=== PATIENT | male | born 1980 | race Caucasian/White ===

== ENCOUNTER 2022-01-07 09:12 | Emergency (ER) | payer BC, MEDICAID ==
[2022-01-07] MEDS ORDERED: Alum Hydro/Mag Hydro/Simeth XS 15 ML, Lidocaine 2% 5 ML PO ONE ×2 (09:34)
[2022-01-07 10:08] LABS: CARBON DIOXIDE,CO2 30.6 mmol/L (21.0-32.0); POTASSIUM,K 3.4 mmol/L (3.5-5.1)
[2022-01-07 10:22] LABS: CORONAVIRUS COVID-19 NAA NEGATIVE (NEGATIVE); INFLUENZA A NAA NEGATIVE (NEGATIVE); INFLUENZA B NAA NEGATIVE (NEGATIVE)
[2022-01-07] MEDS ORDERED: Lidocaine 1% 5 ML VIAL ONE (10:35)
== END 2022-01-07 11:36 | disposition home or self-care (01) ==
LOC: MW.ED 09:12
DX: R05.1 Acute cough (principal); Z88.0 Allergy status to penicillin; Z79.82 Long term (current) use of aspirin; Z20.822 Contact with and (suspected) exposure to COVID-19
CPT/HCPCS: 0240U; 36415; 71045; 80053; 83735; 83880; 84484; 85025; 85610; 85730; 93005; 99285; A9270; 93010; 99283

== ENCOUNTER 2023-04-25 00:24 | Emergency (ER) | payer BC, MEDICAID ==
[2023-04-25] MEDS ORDERED: Ketorolac 30 MG/ML SDV IM ONE (01:04)
[2023-04-25] MEDS ORDERED: Lidocaine 1% 5 ML VIAL INJECT ONE (01:04)
[2023-04-25] MEDS ORDERED: Bupivacaine 0.5% 10 ML SDV INJECT ONE (01:04)
[2023-04-25] MEDS ORDERED: Bupivacaine 0.25% 10 ML SDV ONE (01:13)
[2023-04-25] MEDS ORDERED: Bupivacaine 0.25% 10 ML SDV INJECT ONE (01:13)
== END 2023-04-25 01:28 | disposition home or self-care (01) ==
LOC: MW.ED 00:24
DX: K02.9 Dental caries, unspecified (principal); K08.89 Other specified disorders of teeth and supporting structures; I50.9 Heart failure, unspecified; Z79.82 Long term (current) use of aspirin; Z88.0 Allergy status to penicillin
CPT/HCPCS: J1885; J3490; 64400; 96372; 99282; 99283